=== PATIENT | female | born 1930 | race Caucasian/White ===

== ENCOUNTER 2020-07-07 12:31 | Inpatient (IN) | payer MEDICARE, OTHER ==
[~2020-07-07] VITALS: Ht 167.6 cm; Wt 61.2 kg
[2020-07-07 13:15] LABS: HEMOGLOBIN 10.5 gm/dl (12.3-15.3); RED BLOOD COUNT 3.86 M/UL (4.00-5.10)
[2020-07-07] MEDS ORDERED: LISINOPRIL5 MG PO (17:35)
[2020-07-07] MEDS ORDERED: AMLODIPINE BESY10 MG PO (17:35)
[2020-07-07] MEDS ORDERED: COREG 25MG TAB25 MG PO (17:35)
[2020-07-07] MEDS ORDERED: OMEPRAZOLE20 MG PO (17:36)
[2020-07-07] MEDS ORDERED: ELIQUIS5 MG PO (17:36)
[2020-07-07] MEDS ORDERED: BUMETANIDE2 MG PO (17:37)
[2020-07-09 03:51] LABS: HEMOGLOBIN 10.4 gm/dl (12.3-15.3); RED BLOOD COUNT 3.89 M/UL (4.00-5.10); WHITE BLOOD COUNT 3.4 K/UL (4.5-11.0)
[2020-07-09 04:12] LABS: BUN/CREATININE RATIO 21 (0-10)
[2020-07-11] MEDS ORDERED: DECADRON6 MG PO (13:40)
--- NOTE | 2020-07-11 14:39 | NUR ---
PULSE OX 88% ON ROOM AIR.
--- NOTE | 2020-07-11 15:16 | NUR ---
AWAITING FOR PHARMACY TO BRING REMDESIVIR
== END 2020-07-11 18:15 | disposition home or self-care (01) | DRG 177 ==
LOC: ER1 12:31 → CDU 14:49 → MED SURG 4 14:49
PROVIDERS: Physician Assistant; ADMIT Hospitalist
DX: U07.1 COVID-19 (principal); J12.82 Pneumonia due to coronavirus disease 2019; J96.01 Acute respiratory failure with hypoxia; I10 Essential (primary) hypertension; E87.6 Hypokalemia; E11.9 Type 2 diabetes mellitus without complications; Z88.0 Allergy status to penicillin
CPT/HCPCS: 36415; 36600; 71045; 80048; 82803; 82962; 83605; 84132; 85025; 85027; 87040; 93005; 94760; 99284; J1100; J1650; J7030; Q0177